=== PATIENT | female | born 1960 | race Hispanic/Latino ===

== ENCOUNTER → 2019-08-30 | Outpatient (CLI) | payer OTHER | END | disposition home or self-care (01) | LOC: SHCH 12:38 | PROVIDERS: ATTEND Internal Medicine Cardiovascular Disease | DX: R60.0 Localized edema (principal) | CPT/HCPCS: 93970 ==

== ENCOUNTER → 2020-05-15 | Outpatient (CLI) | payer OTHER | END | disposition home or self-care (01) | LOC: OIH 12:32 | PROVIDERS: ATTEND Internal Medicine | DX: M17.0 Bilateral primary osteoarthritis of knee (principal) ==

== ENCOUNTER 2023-02-07 05:15 | Emergency (ER) | payer BC, OTHER ==
[~2023-02-07] VITALS: Ht 167.6 cm; Wt 102.1 kg
[2023-02-07 05:55] LABS: RAPID GROUP A STREP negative (NEGATIVE)
[2023-02-07] MEDS ORDERED: HYDROCODONE/ACETAMINOPHEN 5/325 MG TAB PO ONE (06:00)
[2023-02-07] MEDS ORDERED: SOLU-MEDROL 125MG VIAL IVP ONE (06:00)
[2023-02-07] MEDS ORDERED: CEFTRIAXONE 1G VIAL IVPB ONE (06:00)
[2023-02-07] MEDS ORDERED: AZITHROMYCIN 250 MG TABLET PO ONE (06:00)
[2023-02-07] MEDS ORDERED: CLONIDINE HCL 0.1 MG TABLET PO ONE (06:00)
[2023-02-07 06:01] LABS: SARS-CoV-2, RNA, NAAT NEGATIVE SARS CoV-2 (NEGATIVE)
[2023-02-07 06:04] LABS: INFLUENZA TYPE A Negative For Type A (NEGATIVE); INFLUENZA TYPE B Negative For Type B (NEGATIVE)
[2023-02-07 06:08] LABS: BASOPHILS # (AUTO) 0.03 K/uL (0.00-0.20); BASOPHILS % (AUTO) 0.3 % (0.0-5.0); EOSINOPHILS # (AUTO) 0.02 K/uL (0.00-0.70); EOSINOPHILS % (AUTO) 0.2 % (0.0-8.0); HEMATOCRIT 47.4 % (36-48); IMMATURE GRANULOCYTE ABSOLUTE 0.04 K/uL (0-1); LYMPHOCYTES # (AUTO) 2.2 K/uL (1.0-4.8); LYMPHOCYTES % (AUTO) 20.7 % (21.0-51.0); MEAN CORPUSCULAR HEMOGLOBIN 32.3 pg (27.0-33.0); MEAN CORPUSCULAR HGB CONC 33.5 g/dL (32.0-36.0); MEAN CORPUSCULAR VOLUME 96.1 fL (79-99); MONOCYTES # (AUTO) 0.5 K/uL (0.1-1.0); MONOCYTES % (AUTO) 4.9 % (3.0-13.0); NEUTROPHILS % (AUTO) 73.5 % (40.0-77.0); PLATELET COUNT (AUTO) 255 K/uL (130-400); RED BLOOD CELL COUNT(AUTO) 4.93 MIL/uL (4.00-5.50); RED CELL DISTRIBUTION WIDTH 12.3 % (11.0-15.5); WHITE BLOOD COUNT (AUTO) 10.8 K/uL (4.8-10.8)
[2023-02-07 06:28] LABS: ALBUMIN 3.7 g/dL (3.5-5.0); BILIRUBIN,TOTAL 0.5 mg/dL (0.2-1.0); CREATININE 0.8 mg/dL (0.5-1.5); POTASSIUM 4.7 mmol/L (3.5-5.1); TOTAL PROTEIN, SERUM 7.7 g/dL (6.0-8.3)
[2023-02-07] MEDS ORDERED: PRED20TA3 PO (06:56)
[2023-02-07] MEDS ORDERED: AZIT500T2 PO (06:56)
[2023-02-07] MEDS ORDERED: ALBU90AE2 IH (06:56)
[2023-02-07] MEDS ORDERED: BENZ-39 PO (06:57)
[2023-02-07] MEDS ORDERED: IPRATROPIUM/ALBUTEROL SULFATE 3 ML SOLUTION IH ONE ×2 (07:00)
[2023-02-07 07:17] VITALS: PULSE 66; RESP 18
[2023-02-07 07:34] VITALS: BP 140/82; PULSE 68; RESP 18; O2SAT 97
== END 2023-02-07 07:38 | disposition home or self-care (01) ==
LOC: EDH 05:15
DX: J20.9 Acute bronchitis, unspecified (principal); J45.909 Unspecified asthma, uncomplicated; I10 Essential (primary) hypertension; Z90.49 Acquired absence of other specified parts of digestive tract; Z20.822 Contact with and (suspected) exposure to COVID-19
CPT/HCPCS: 99284; 96374; 71045; 87635; 96375; 80053; 85025; 87040 ×2; 87880; 87804 ×2; 83605; 36415; 94640; C9803; J2930; J0696